=== PATIENT | male | born 1975 | race Caucasian/White ===

== ENCOUNTER → 2018-06-15 | Outpatient (CLI) | payer BC ==
[~2018-06-15] MED LIST: AMOXICILLIN 50500 MG PO; LORTAB 5/500 501 TAB PO; NAPROSYN500 MG PO; NO HOME MEDICATIONS; NORCO 325 MG-51 TAB PO
== END ==
LOC: COL.VAS 08:37
DX: Z83.79 Family history of other diseases of the digestive system (principal)